=== PATIENT | male | born 1995 | race Caucasian/White ===

== ENCOUNTER → 2020-03-30 15:48 | Outpatient (CLI) | payer OTHER, SELFPAY ==
--- NOTE | 2020-03-30 15:56 | DI.RAD.S_ITS ---
PROCEDURE: XR KUB INDICATIONS: kidney stones TECHNIQUE: One view of the abdomen acquired. COMPARISON: None. FINDINGS: Surgical changes and devices: None. Bowel: Bowel gas pattern is normal. Moderate stool is seen in the right colon. Soft tissues: A 3 mm calcification is seen projecting over the expected location of the superior pole the right kidney. No left renal calcification is seen. Visualized solid organ contours appear normal in size. Bones: No suspicious bony lesions. IMPRESSION: Small 3 mm calcification projecting over the right kidney is suspicious for a renal calculus. Dictated by: Zia Li M.D. on 03/30/2020 at 16:47 Approved by: Zia Li M.D. on 03/30/2020 at 16:48
[2020-04-09 13:57] LABS: Stone Analysis Source NOT PROVIDED
[2020-04-09 13:58] LABS: Ca oxalate monohydr 70; Size 3x3
[2020-04-09 13:59] LABS: Ca oxalate dihydrate 30
== END ==
PROVIDERS: PCP Internal Medicine; Referring Provider Specialist; Visit Provider Specialist
DX: N20.0 Calculus of kidney (principal)
CPT/HCPCS: 74018; 82365

== ENCOUNTER → 2020-04-11 09:14 | Outpatient (CLI) | payer OTHER, SELFPAY ==
--- NOTE | 2020-04-11 09:17 | DI.CT.S_ITS ---
PROCEDURE: CT KIDNEY URETER BLADDER (KUB) INDICATIONS: kidney stones TECHNIQUE: Noncontrast 5 mm thick sections acquired from the diaphragms to the symphysis. 5 mm thick coronal and sagittal reformats were then performed. For radiation dose reduction, the following was used: automated exposure control, adjustment of mA and/or kV according to patient size. COMPARISON: None. FINDINGS: Image quality: Excellent. Lung bases: Lung bases are clear. Heart size is normal. Urinary system: Right kidney: 4 mm nonobstructing upper pole stone. No hydronephrosis. Right ureter: Unremarkable Left kidney: Mild hydronephrosis. No renal stones. Left ureter: There are 2 stones in the distal ureter at the ureterovesical junction, the larger of which measures approximately 5 mm. This results in mild hydroureter and hydronephrosis. Bladder: No bladder stones. No bladder wall thickening. Persistent urachal remanent. Other solid organs: Liver is normal in size. Gallbladder is unremarkable. Pancreas is normal in contours. Spleen is normal in size. No adrenal nodules. Peritoneum and bowel: Unenhanced bowel loops demonstrate normal wall thickness and caliber. No free fluid or air. Nodes and vessels: No retroperitoneal or mesenteric adenopathy by size criteria. Aorta and inferior vena cava are normal in caliber. Abdominal wall: No ventral hernias. Pelvis: No free pelvic fluid. No inguinal hernias or adenopathy. Bones: No suspicious bony lesions. No vertebral body compression fractures. IMPRESSION: 1. There are 2 small stones at the left UVJ, the larger of which measures approximately 5 mm, resulting in mild left hydroureter and hydronephrosis. 2. Nonobstructing right renal stone. 3. Persistent urachal remnant. Dictated by: Norm Clements M.D. on 04/11/2020 at 9:45 Approved by: Norm Clements M.D. on 04/11/2020 at 9:50
== END ==
PROVIDERS: PCP Internal Medicine; Referring Provider Specialist; Visit Provider Specialist
DX: N13.2 Hydronephrosis with renal and ureteral calculous obstruction (principal); Q64.4 Malformation of urachus
CPT/HCPCS: 74176

== ENCOUNTER → 2020-04-13 08:45 | Outpatient (CLI) | payer OTHER, SELFPAY ==
[2020-04-13 09:11] LABS: COVID19 -Nasal RAPID Negative (Negative)
== END ==
PROVIDERS: PCP Internal Medicine; Visit Provider Specialist
DX: Z11.59 Encounter for screening for other viral diseases (principal); Z20.822 Contact with and (suspected) exposure to COVID-19
CPT/HCPCS: 87635; C9803

== ENCOUNTER 2020-04-16 10:52 | Day surgery (SDC) | payer OTHER, SELFPAY ==
[2020-04-16] VITALS (10 sets, daily range): BP systolic 108–131; BP diastolic 59–78; PULSE 65–95; RESP 10–17; TEMP 36.3–37.4; O2SAT 94–99; BMI 27.2
[2020-04-16 11:58] LABS: Alanine Aminotransferase 68 IU/L (<50); Albumin 4.9 g/dL (3.5-5.0); Albumin Globulin Ratio 1.5 (1.0-2.8); Alkaline Phosphatase 76 U/L (38-126); Aspartate Aminotransferase 32 IU/L (17-59); BUN Creatinine Ratio 23.4 (6-22); Bilirubin Total 0.5 mg/dL (0.2-1.3); Blood Urea Nitrogen 18 mg/dL (9-20); Calcium 9.8 mg/dL (8.4-10.2); Carbon Dioxide 28 mmol/L (22-32); Chloride 104 mmol/L (98-107); Estimated Glomerular Filt Rate > 60.0 mL/min (>60); Globulin 3.3 g/dL (1.7-4.1); Glucose 95 mg/dL (70-100); HEMOLYSIS < 15 (0-50); Potassium 4.5 mmol/L (3.4-5.1); Sodium 139 mmol/L (137-145); Total Protein 8.2 g/dL (6.3-8.2)
--- NOTE | 2020-04-16 12:29 | PM.PREOP ---
Pre-operative Note Interval Note History & Physical reviewed/Exam performed by Physician: Yes Changes to H&P: No
[2020-04-16] MEDS: CEFAZOLIN 2 GM/100 ML FROZ.PIGGY IV (12:34)
--- NOTE | 2020-04-16 12:59 | SUR.OPER ---
Lithotomy on padded OR bed, head on pillow, arms secured on padded arm boards at <90 degrees abduction. Legs secured in padded yellow fins stirrups.
[2020-04-16] MEDS: LACTATED RINGERS 1,000 ML 42 ML IV (13:30)
--- NOTE | 2020-04-16 13:48 | P.OP_ITS ---
Operative Date/Time/Diagnoses Date of procedure: 04/16/20 Time of procedure: 13:48 Pre-op diagnosis: Left distal ureteral calculi x2 Intractable left renal colic Post-op diagnosis: same Procedure & Clinicians Procedure: 1. Cystoscopy and left ureteroscopic laser lithotripsy x2. 2. Cystoscopy and placement of left ureteral stent (6 Beninese by 22-32 cm multi- length). Same procedure as scheduled: Yes Indications: 1. Left distal ureteral calculi x2 2. Intractable left renal colic Surgeon: Isa Byrne Click Yes if Unassisted: Yes Anesthesia Type: General Operative Notes Findings: 1. Urethra-normal. 2. External sphincter-coapted. 3. Prostate- 3 cm length nonobstructing. 4. Bladder-left intra ureteric ridge demonstrated a fullness consistent with calculi residing within or near the location. Right ureteral orifice was in normal position configuration. Remainder of the bladder urothelium unremarkable. 5. Left ureter 2 stones were located within and at the left ureterovesical junction and to rule ureter. Both were successfully fragmented using the laser fiber. Closure Type: not applicable Specimen(s): none sent Applied: other (Six Beninese by 22-32 cm multi-length stent) Estimated Blood Loss (mL): 0 Blood products transfused: none Tourniquet time (min): 0 Procedure in detail: The patient was positioned in supine and administered general anesthesia. He was then repositioned semi lithotomy lower abdomen, genitalia, and groin were then prepped and draped in sterile fashion. The 22 Beninese panendoscope was then passed lower urinary tract with findings as described above. Next a 0.35 hybrid guidewire was advanced into the left collecting system and advanced proximally under direct and fluoroscopic guidance. Over this a 12 Beninese by 6 cm length balloon dilating catheter was positioned across the left ureterovesical junction. The balloon was then inflated to 18 atmospheres and held in position for 5 minutes. The balloon was then deflated and was backloaded off the guidewire. The panendoscope was also backloaded off the guidewire. The semi rigid ureteral scope was then introduced lower urinary tract advanced and left ureteral orifice with the findings as described above. A 273 micron laser fiber was then selected and all operating room personnel and patient were fitted with laser safety eyewear. Laser fragmentation of the 2 index calculi was then undertaken successively with excellent result in fragmentation and clearance of the fragments from the ureteral lumen using a combination of mechanical agitation and hydrostatic flow. The semi rigid ureteral scope was then backloaded out of the ureter a final time and of the lower urinary tract a final time. The panendoscope was then front loaded on the guidewire and advanced proximally. A 6 Beninese by 22-32 cm multi-length stent was then selected. It was then advanced over the hybrid guidewire under direct and fluoroscopic guidance. A RETRIEVAL LINE WAS LEFT ATTACHED. The bladder was drained a final time and all instrumentation was removed. The patient was then repositioned and supine, was awakened, and was transferred to the [facility] before transport to PACU. Complications: none Post-operative Condition: stable Disposition: PACU Plan for aftercare: Discharge home
[2020-04-16] MEDS: ONDANSETRON 4 MG/2 ML INJ IV (13:55)
[2020-04-16] MEDS: MEPERIDINE 50 MG/ML INJ 25 MG IV (14:04)
[2020-04-16] MEDS: OXYCODONE/ACETAMINOPHEN 5/325 TABLET 1 TAB PO (14:17)
--- NOTE | 2020-04-16 14:24 | SUR.PHASEI ---
Pt arrived, shakes present, warm blankets applied, pt initially with no c/o pain then rated pain 7/10, medicated with demerol and shakes and pain improved. Medicated with percocet after applesauce tolerated.
--- NOTE | 2020-04-16 14:40 | SUR.PHASEI ---
To opd, stable.
[2020-04-17 05:36] LABS: Parathyroid Hormone Int 43 pg/mL (15-65)
== END 2020-04-16 15:10 | disposition home or self-care (01) ==
PROVIDERS: PCP Internal Medicine; Referring Provider Specialist; Visit Provider Specialist
PROC: (CPT 52356; principal; 2020-04-16 13:30)
DX: N20.1 Calculus of ureter (principal)
CPT/HCPCS: 52356; 80053; 82962; 83970; J0690; J1100; J2175; J2405; J2704; J3010

== ENCOUNTER → 2020-04-24 16:45 | Outpatient (CLI) | payer OTHER, SELFPAY ==
--- NOTE | 2020-04-24 16:48 | DI.RAD.S_ITS ---
PROCEDURE: XR KUB INDICATIONS: hematuria/ kidney stone TECHNIQUE: One view of the abdomen acquired. COMPARISON: [facility], CR, XR KUB, 03/30/2020, 15:55. FINDINGS: Surgical changes and devices: None. Bowel: Bowel gas pattern is normal. Soft tissues: Small 3-4 millimeter calcification is seen in upper pole of right kidney. No left-sided renal calcification is seen. Visualized solid organ contours appear normal in size. Bones: No suspicious bony lesions. IMPRESSION: Suggestion of small right upper pole renal stone. No left-sided renal stone is seen. No gross pelvic calcification is seen. No evidence of bowel obstruction or gross free air. Dictated by: Jonel Felipe M.D. on 04/24/2020 at 16:50 Approved by: Jonel Felipe M.D. on 04/24/2020 at 16:52
[2020-04-24 18:35] LABS: Appearance Urine UA CLEAR; Bilirubin Urine UA NEGATIVE (NEGATIVE); Color Urine UA YELLOW; Glucose Urine UA NEGATIVE (Negative); Ketones Urine UA NEGATIVE (NEGATIVE); Leukocyte Esterase Urine UA NEGATIVE (NEGATIVE); Nitrite Urine UA NEGATIVE (Negative); Occult Blood Urine UA 3+ (Negative); Protein Urine UA NEGATIVE (Negative); Urobilinogen Urine UA 0.2 E.U./dL (0.2)
[2020-04-24 19:05] LABS: Bacteria Urine None Seen
[2020-04-24 19:07] LABS: Culture Indicated Urine Cult Not Indicated; RBC Urine 10-30/HPF (0-5/HPF); Squamous Epithelial Cell Urine 0-1 /HPF (0-5/HPF); WBC Urine 0-1/HPF (0-5/HPF)
== END ==
PROVIDERS: PCP Internal Medicine; Referring Provider Specialist; Visit Provider Specialist
DX: N20.1 Calculus of ureter (principal); R30.0 Dysuria; R31.9 Hematuria, unspecified
CPT/HCPCS: 74018; 81003; 81015

== ENCOUNTER → 2023-01-23 16:36 | Outpatient (CLI) | payer OTHER, SELFPAY ==
--- NOTE | 2023-01-23 | DI.US.S_ITS ---
PROCEDURE: US RENAL COMPLETE INDICATIONS: CALCULUS OF KIDNEY TECHNIQUE: Real-time scanning was performed of the kidneys and bladder, with image documentation. COMPARISON: [facility], CT, CT KIDNEY URETER BLADDER (KUB), 04/11/2020, 9:18. FINDINGS: Kidneys: Kidneys are normal in size. Right kidney measures 11.1 cm long; left kidney measures 11.3 cm long. Right renal cortical thickness is 1.9 cm; left renal cortical thickness is 1.9 cm. Renal cortical echotexture is normal. No hydronephrosis or nephrolithiasis. No suspicious solid mass lesions. There is a simple left 1.1 cm renal cyst. Bladder: Pre-void bladder volume is 245 mL. Post-void residual is 20 mL. Pre-void images demonstrate no intraluminal masses or stones. On pre-void images, bilateral ureteral jets are noted with color Doppler interrogation. (Of note, ureteral jets may not be detectable in up to 25% of cases due to insufficient differences in specific gravity between ureteral and bladder urine). Miscellaneous: No free pelvic fluid. IMPRESSION: 1. No hydronephrosis or nephrolithiasis. 2. Small postvoid residual. Dictated by: Loren Vaca M.D. on 01/25/2023 at 11:16 Approved by: Loren Vaca M.D. on 01/25/2023 at 11:18
== END ==
PROVIDERS: PCP Internal Medicine; Referring Provider Nurse Practitioner Family; Visit Provider Nurse Practitioner Family
DX: N20.0 Calculus of kidney (principal); N28.1 Cyst of kidney, acquired
CPT/HCPCS: 76770